=== PATIENT | male | born 1980 | race American Indian/Alaskan Native ===

== ENCOUNTER 2018-11-13 14:24 | Emergency (ER) | payer OTHER ==
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
[2018-11-13 17:00] VITALS: BP 124/70
== END 2018-11-13 16:59 | disposition home or self-care (01) ==
LOC: ED 14:24
DX: S13.9XXA Sprain of joints and ligaments of unspecified parts of neck, initial encounter (principal); S23.3XXA Sprain of ligaments of thoracic spine, initial encounter; Z79.899 Other long term (current) drug therapy; V89.2XXA Person injured in unspecified motor-vehicle accident, traffic, initial encounter; Y93.89 Activity, other specified; Y92.488 Other paved roadways as the place of occurrence of the external cause; Y99.8 Other external cause status
CPT/HCPCS: 72040; 72072; 99283

== ENCOUNTER 2018-12-05 22:45 | Emergency (ER) | payer SELFPAY ==
[2018-12-06] MEDS ORDERED: ULTRAM PO ONE (02:31)
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
[2018-12-06 04:37] VITALS: BP 134/85
== END 2018-12-06 04:35 | disposition home or self-care (01) ==
LOC: ED 22:45
DX: S30.0XXA Contusion of lower back and pelvis, initial encounter (principal); F17.200 Nicotine dependence, unspecified, uncomplicated; V89.2XXA Person injured in unspecified motor-vehicle accident, traffic, initial encounter; Y93.89 Activity, other specified; Y92.410 Unspecified street and highway as the place of occurrence of the external cause; Y99.8 Other external cause status
CPT/HCPCS: 72220